=== PATIENT | female | born 1960 | race Caucasian/White ===

== ENCOUNTER 2022-07-06 21:02 | Emergency (ER) | payer OTHER ==
--- OUTSIDE RECORDS SUMMARY | 2022-07-06 21:06 | XMS REPORT | Continuity of Care Document ---
:1960 Author Organization [facility] t Address 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 Attending Clinician Unavailable GC_PANTHER_Still_D Attending Clinician Unavailable GC_TBIC_WP_Mammo Attending Clinician Unavailable Khai Sharif Attending Clinician [phone] Amanda Day Attending Clinician [phone] Jamin Plascencia Attending Clinician Fernando Caputo Attending Clinician Damaso Etienne Attending Clinician GC_PANTHER_Patel_G Admitting Clinician Unavailable GC_PANTHER_Still_D Admitting Clinician Unavailable GC_[email or web address]_Mammo Admitting Clinician Unavailable Damaso Etienne Admitting Clinician Payers Payer Name Policy Type Policy Number Effective Date Expiration Date [facility] [id number] Problems Condition Condition Condition Status Onset Resolution Last Treating Co mments Source Name Details Category Date Date Treatment Clinician Date Seasonal Seasonal Problem Active [facility] a allergic Allergic 09-13 Medica l rhinitis Rhinitis 00:00: 00 Vaginal Vaginal Problem Active [facility] dryness Dryness - Medical 00:00: 00 Bilateral Bilateral Problem Active Diane via temporoman Temporoman 08-08 Me dical dibular dibular 00:00: joint Joint 00 disorder Disorder WEAKNESS WEAKNESS Diagnosis Active 2018-052019-03-12 Memoria Active 0 11:00:00 l 03/07/2019 07:00: Rambo allred Lauryn 00 Rehab M25.511 M25.511 Diagnosis Active 2019-02-03 Memoria Active 01-21 15:06:00 l 01/21/2019 00:00: Rambo allred Lauryn 00 Rehab MORBID MORBID Diagnosis Active 2018-02-24 M emoria OBESITY OBESITY 01-08 12:18:00 l Active 00:00: Justus 01/08/2018 00 [facility] Herpes Herpes Problem Active [facility] simplex Simplex 12-15 Medical 00:00: 00 Hyperlipid Hyperlipid Problem Active P rivia emia emia 12-15 Medical 00:00: 00 Depressive Depressive Problem Active P rivia disorder Disorder 12-15 Medica l 00:00: 00 Attention Attention Problem Active Diane via deficit Deficit 12-15 Medical hyperactiv Hyperactiv 00:00: ity ity 00 disorder Disorder Hypertensi Hypertensi Problem Active P rivia ve ve 12-15 Medical disorder Disorder 00:00: 00 Acid Acid Problem Active [facility] reflux Reflux 12-15 Medical 00:00: 00 Irritable Irritable Problem Active Diane via bowel Bowel 12-15 Medical syndrome Syndrome 00:00: 00 Osteoarthr Osteoarthr Problem Active P rivia itis itis 12-15 Medical 00:00: 00 Multiple Multiple Problem Active [facility] Me dical velia velia 00:00: allergies Allergies 00 Preop Preop Disease Active [facility] cardiovasc cardiovasc 4-13 st ular exam ular exam 00:00: Hosp inocente 00 l Mixed Mixed Disease Active [facility] hyperlipid hyperlipid 4-13 st emia emia 00:00: Hospita 00 l Essential Essential Disease Active Met hodi hypertensi hypertensi 4-13 st on on 00:00: Hospita 00 l Morbid Morbid Disease Active [facility] obesity obesity 12-20 st due to due to 00:00: Hospita excess excess 00 l calories calories Depression Depression Disease Active M ethodi 7-29 st 00:00: Hospita 00 l GERD GERD Disease Active [facility] (gastroeso (gastroeso 12-20 phageal phageal 00:00: Hospita reflux reflux 00 l disease) disease) Osteoarthr Osteoarthr Disease Active M ethodi itis itis 12-20 00:00: Hospita 00 l Sciatica Sciatica Disease Active Metho di 11-29 00:00: Hospita 00 l Asthma Asthma Problem Active [facility] Medical Thyroid Thyroid Problem Active [facility] function Function Medica l tests Tests abnormal Abnormal Hyperlipid Hyperlipi Problem 2018-09-13 Memoria emia, demia, 11:24:37 l unspecifie unspecifie He rmann d d 09/13/2018 [facility] Essential Essential Problem 2018-09-13 Memoria (primary) (primary) 11:24:37 l hypertensi hypertensi He rmann on on 09/13/2018 [facility] Gastro-eso Gastro-es Problem 2018-09-13 Memoria phageal ophageal 11:24:37 l reflux reflux [place] disease disease without without esophagiti esophagiti s s 09/13/2018 [facility] Diaphragma Problem 2018-09-13 M emoria tic hernia Diaphragma 11:24:37 l without tic hernia Thalia nn obstructio without n or obstructio gangrene n or gangrene 09/13/2018 [facility] Body mass Body mass Problem 2018-09-13 Memoria index index 11:24:37 l (BMI) (BMI) [place] 45.0-49.9, 45.0-49.9, adult adult 09/13/2018 [facility] Mixed Mixed Problem Active 2019-04-08 Memor ia anxiety anxiety 00:29:56 l and and Justus depressive depressive disorder disorder (disorder) (disorder) Active Problem 04/08/2019 АННА Perez, ANGELA [place], [facility] History of History Problem Active 2019-04-08 Memoria - obesity of - 00:29:56 l (context-d obesity Thalia nn ependent (context-d category) ependent category) Active Problem 04/08/2019 АННА Perez, ANGELA [place], [facility] Obstructiv Obstructi Problem Active 2019-04-08 Memoria e sleep ve sleep 00:29:56 l apnea apnea [place] syndrome syndrome (disorder) (disorder) Active Problem 04/08/2019 [facility], ANGELA [place], [facility] PAIN IN PAIN IN Diagnosis Active 2019-02-03 Memoria RIGHT RIGHT 15:06:00 l SHOULDER SHOULDER Rambo n Active Lauryn Rehab MORBID MORBID Diagnosis Active 2018-02-24 Me moria (SEVERE) (SEVERE) 12:18:00 l OBESITY OBESITY [place] DUE TO DUE TO EXCESS CA EXCESS CA Active [facility] History of Past Illness Condition Condition Condition Status Onset Resolution Last Treating Co mments Source Name Details Category Date Date Treatment Clinician Date Encounter Encounter Problem 2017-052018-10-12 2018-10-12 Memoria for for 06-01 13:06:33 13:06:33 l screening screening 06:03: Herm edouard mammogram mammogram 50 for for malignant malignant neoplasm neoplasm of breast of breast 04/01/2018 9 ANGELA Cannelton Morbid Morbid Problem 2017-052018-09-13 2018-09-13 Memoria (severe) (severe) 0-11 11:24:37 11:24:37 l obesity obesity 04:17: [place] due to due to 40 excess excess calories calories 03/04/2018 09/13/2018 [facility] Allergies, Adverse Reactions, Alerts Allergy Allergy Status Severity Reaction(s) Onset Inactive Treating Comm ents Source Name Type Date Date Clinician Codejaneth Lai Active Other (See "Makes me Methodi ty to Comments) 10-23 tense" st adverse 00:00: Hospita reaction 00 l s to drug Morphine Propensi Active Itching Metho di ty to 12-15 st adverse 00:00: Hospita reaction 00 l s to drug morphine morphine Active Memori a l Justus Lisinopr Allergy Active Mild Cough [facility] il to Medical substanc e Family History Family Member Diagnosis Comments Start Date Stop Date Source Paternal Heart disease [facility] Paternal Cancer [facility] Paternal Colon cancer [facility] Paternal uncle Diabetes [facility] Natural father Heart disease [facility] Natural father Hypertension [facility] Maternal Heart disease [facility] Maternal Pancreatic cancer [facility] Natural mother Anesthesia problems [facility] Natural mother Arthritis [facility] Social History Social Habit Start Date Stop Date Quantity Comments Source History of Tobacco [facility] Use [facility] ent Clinics Alcohol intake 2017-10-24 2017-10-24 Current [facility] 00:00:00 00:00:00 non-drinker of Hospital alcohol (finding) Cigarettes smoked 2017-08-04 2017-08-[address] current (pack per 00:00:00 00:00:00 Hospita l day) - Reported Cigarette 2017-08-04 2017-08-04 [facility] pack-years 00:00:00 00:00:00 Hospital Tobacco use and 2017-08-04 2017-08-04 Smokeless [facility] exposure 00:00:00 00:00:00 tobacco non-user Hospital Sex Assigned At [birth year] [facility] 00:[facility] 00[facility]:00 Hospital Smoking Status Start Date Stop Date Source Social History 2018-02-22 13:01:58 2018-02-22 13:01:58 [facility] Medications Ordered Filled Start Stop Current Ordering Indication Dosage Frequency Signature Comments Components Source Medication Medication Date Date Medication? Clinician (SIG) Name Name diclofenac 2017-05 Yes 2g Q.25D Apply 2 g M ethodi (VOLTAREN) 0-[address] 1 % gel 08:02: 4 (four) Hospit a 17 times a l day. VITAMIN B 2017-05 Yes Take by Metho di COMPLEX (B 0-[address] COMPLEX 1 08:02: Hospita ORAL) 17 l ubidecareno 2017-05 Yes Take by Met saqib ken (CO Q-10 0-[address] ORAL) 08:02: Hospita 17 l Phenergan 2017-05 Yes 25 mg = 1 Mem oria 25 mg oral 0-03 tab, PO, l tablet 14:27: Q6H, PRN Justus 00 Nausea, # 20 tab, 1 Refill(s), given to patient Famotidine 2017-05 Yes 20 mg = 1 Me moria 20 MG Oral 0-03 tab, PO, l Tablet 14:27: BID, # 180 Thalia nn [Pepcid] 00 tab, 0 Refill(s), given to patient Acetaminoph 2017-05 No 15 ml, PO, Memoria en 21.7 0-03 Q4H, PRN l MG/ML / 14:27: Pain, X 7 Thalia nn Hydrocodone 00 day, # 400 Bitartrate mL, 0 0.5 MG/ML Refill(s), Oral given to Solution patient Lovenox 2017-05 No Notes: Memoria 0-03 (Same as: l 12:00: Lovenox) Famotidine 2017-05 No Notes: Memor ia 0-03 (Same as: l 02:00: Pepcid) Can be dilute in 5-10cc NS IVP: Slow IV push over at least 2 minutes. glycopyrrol 2017-05 No Route: IV, Memoria ate (ANES) 0-02 Drug form: l 15:59: INJ, ONCE, Stop date: 02/23/18 10:59:00 CDT dexamethaso 2017-05 No Route: IV, Memoria ne (ANES) 0-02 Drug form: l 15:59: INJ, ONCE, Stop date: 02/23/18 10:59:00 CDT neostigmine 2017-05 No Route: IV, Memoria (ANES) 0-02 Drug form: l 15:59: INJ, ONCE, Stop date: 02/23/18 10:59:00 CDT cefOXitin 2017-05 No Route: IV, Me moria (ANES) 0-02 Drug form: l 15:52: INJ, ONCE, Stop date: 02/23/18 10:52:00 CDT ondansetron 2017-05 No Route: IV, Memoria (ANES) 0-02 Drug form: l 15:47: INJ, ONCE, Stop date: 02/23/18 10:47:00 CDT hydromorpho 2017-05 No Route: IV, Memoria ne (ANES) 0-02 Drug form: l 15:47: INJ, ONCE, Stop date: 02/23/18 10:47:00 CDT Flumazenil 2017-05 No Notes: Memor ia 0-02 (Same as: l 15:36: Romazicon) Naloxone 2017-05 No Notes: Memoria 0-02 Same as l 15:36: Narcan Atropine 2017-05 No Notes: Mem oria 0-02 MEDICATION l 15:36: WASTE [place] 00 Product Size: 0.4 mg Product Wasted: ___ mg Ephedrine 2017-05 No Notes: Memori a 0-02 final l 15:36: concentrat [place] 00 ion 5 mg/mL Diphenhydra 2017-05 No Notes: Kaleb papito mine 0-02 (Same as: l 15:36: Benadryl) Albuterol 2017-05 No Notes: SEE Me moria 0.83 MG/ML 0-02 RT l Inhalant 15:36: DOCUMENTAT Her joseph Solution 00 ION (Same as: Proventil) Glycopyrrol 2017-05 No Notes: Kaleb papito ate 0-02 (Same as: l 15:36: Robinul) Dexamethaso 2017-05 No Notes: Kaleb papito ne 0-02 Concentrat l 15:36: ion: Justus 00 4mg/ml Ondansetron 2017-05 No Notes: Kaleb papito 0-02 (Same as: l 15:36: Zofran) MEDICATION WASTE Product Size: 4 mg Product Wasted: ___ mg Hydromorpho 2017-05 No Notes: Kaleb papito ne 0-02 Same as: l 15:36: Dilaudid Oxycodone 2017-05 No Notes: Memori a 0-02 (Same as: l 15:36: Roxicodone ) Fentanyl 2017-05 No Notes: Memoria 0-02 (Same as: l 15:36: Sublimaze) Preservati ve free. Hydralazine 2017-05 No Notes: Kaleb papito 0-02 (Same as: l 15:36: Apresoline ) Push over 5 minutes Labetalol 2017-05 No 10 mg, 2 Kaleb papito 0-02 mL, Route: l 15:36: IVP, Drug form: INJ, Q5Min, Dosing Weight 110, kg, PRN Elevated BP, Start date: 02/23/18 10:36:00 CDT, Duration: 5 doses or times, Stop date: Limited # of times Metoprolol 2017-05 No Notes: Memor ia 0-02 (Same as: l 15:36: Lopressor) Justus 00 Push over 2 minutes Calcium 2017-05 No 1,000 mL, Memor ia Chloride 0-02 Rate: 125 l 0.0014 15:36: ml/hr, Justus MEQ/ML / 00 Infuse Potassium over: 8 Chloride hr, Route: 0.004 IV, Dosing MEQ/ML / Weight 110 Sodium kg, Total Chloride Volume: 0.103 1,000, MEQ/ML / Start Sodium date: Lactate 02/23/18 0.028 10:36:00 MEQ/ML CDT, Injectable Duration: Solution 30 day, Stop date: 03/25/18 10:35:00 CDT, 2.24, m2 enalapril 2017-05 No Notes: Memori a 0-02 (Same as: l 15:28: Vasotec-IV Justus ) Dilaudid 2017-05 No Notes: Memoria 0-02 Same as: l 15:28: Dilaudid Justus 00 Benadryl 2017-05 No Notes: Memoria 0-02 (Same as: l 15:28: Benadryl) [place] 00 Sodium 2017-05 No 984.8 mL, Memori a Chloride 0-02 Rate: 100 l 0.9% IV 15:28: ml/hr, [place] 984.8 mL + 00 Infuse M.V.I.-12 over: 10 10 mL Daily hr, Route: + folic IV, Dosing acid IV 1 Weight 110 mg Daily + kg, Total thiamine IV Volume: 5 1,000, Start date: 02/23/18 10:28:00 CDT, Duration: 1 doses or times, Stop date: 02/23/18 20:27:00 CDT, 2.24, m2 Acetaminoph 2017-05 No Notes: Do M emoria en 21.7 0-02 not exceed l MG/ML / 15:28: 4gm/day of Herm edouard Hydrocodone 00 acetaminop Bitartrate hen. (Same 0.5 MG/ML as: [place] Oral 325/7.5) Solution Zofran 2017-05 No Notes: Memoria 0-02 (Same as: l 15:28: Zofran) Justus 00 MEDICATION WASTE Product Size: 4 mg Product Wasted: ___ mg Phenergan 2017-05 No Notes: Do Mem oria 0-02 not give l 15:28: IV push. (Same as: Phenergan) normal 2017-05 No 1,000 mL, Memori a saline 0.9% 0- Rate: 125 l IV 1,000 mL 15:28: ml/hr, Herm Infuse over: 8 hr, Route: IV, Dosing Weight 110 kg, Total Volume: 1,000, Start date: 02/23/18 10:28:00 CDT, Duration: 30 day, Stop date: 03/25/18 10:27:00 CDT, 2.24, m2 rocuronium 2017-05 No Route: IV, M emoria (ANES) 0-02 Drug form: l 15:12: INJ, ONCE, Stop date: 02/23/18 10:12:00 CDT ePHEDrine 2017-05 No Route: IV, Me moria (ANES) 0-02 Drug form: l 15:12: INJ, ONCE, Stop date: 02/23/18 10:12:00 CDT phenylephri 2017-05 No Route: IV, Memoria ne (ANES) 0-02 Drug form: l 15:12: INJ, ONCE, Stop date: 02/23/18 10:12:00 CDT fentaNYL 2017-05 No Route: IV, Mem oria (ANES) 0-02 Drug form: l 15:12: INJ, ONCE, Stop date: 02/23/18 10:12:00 CDT propofol 2017-05 No Route: IV, Mem oria (ANES) 0-02 Drug form: l 15:12: INJ, ONCE, Stop date: 02/23/18 10:12:00 CDT midazolam 2017-05 No Route: IV, Me moria (ANES) 0-02 Drug form: l 14:57: SOLN, ONCE, Stop date: 02/23/18 9:57:00 CDT famotidine 2017-05 No Route: IV, M emoria (ANES) 0-02 Drug form: l 14:57: INJ, ONCE, Stop date: 02/23/18 9:57:00 CDT magnesium 2017-05 No Route: IV, Me moria sulfate 0-02 Drug form: l (ANES) 40 14:20: INJ, Start He rmann mg 00 date: 02/23/18 9:20:00 CDT, Stop date: 02/23/18 10:20:00 CDT Lactated 2017-05 No Route: IV, Mem oria Ringers 0-02 Total l Injection 14:16: Volume: Thalia nn IV (ANES) 00 1,000, 1000 mL Start date: 02/23/18 9:16:00 CDT, Stop date: 02/23/18 10:16:00 CDT magnesium 2017-05 No Notes: Memori a sulfate 2gm 0-02 WASTE: F/P l / NS 50ml 14:00: - Sink; E Her joseph (premixed) - Municipal Trash Bin 72 HR 2017-05 No 1.5 mg = 1 Memori a Scopolamine 0-02 patch, l 0.0139 13:51: TOP, Q72H, Thalia nn MG/HR 00 PRN Transdermal Other-See Patch Comments, # 4 ea, 0 Refill(s) aprepitant 2017-05 No 40 mg = 1 Me moria 40 mg oral 0-02 cap, PO, l capsule 13:51: ONCE, # 1 Thalia nn 00 cap, 0 Refill(s) Lactated 2017-05 No 1,000 mL, Kaleb papito Ringers IV 0-02 Rate: 40 l 1,000 mL 13:46: ml/hr, Justus 00 Infuse over: 25 hr, Route: IV, Dosing Weight 110 kg, Total Volume: 1,000, Start date: 02/23/18 8:46:00 CDT, Duration: 30 day, Stop date: 03/25/18 8:45:00 CDT, 2.24, m2 Magnesium 2017-05 No Notes: Memori a Sulfate 0-02 WASTE: F/P l 01:00: - Sink; E [place] 00 - Municipal Trash Bin Zofran ODT 2017-05 No Notes: Memor ia 0-02 (Same as: l 00:29: Zofran Justus 00 ODT) heparin 2017-05 No Notes: Memoria 0-01 porcine l 16:00: heparin Justus 00 Mefoxin + 2017-05 No Notes: Memori a sterile 0-01 (Same As: l water 20 mL 16:00: Mefoxin) rmann 00 MEDICATION WASTE Product Size: 2000 mg Product Wasted: ___ mg Tylenol 2017-05 No PO, PRN, 0 Kaleb papito 0-01 Refill(s) l 13:08: [place] 00 Ibuprofen 2017-05 No 400 mg = 2 Me moria 200 MG Oral 0-01 tab, PO, l Tablet 13:07: PRN, PRN [place] [Advil] 00 Pain, # 120 tab, 0 Refill(s) Ventolin 2017-05 Yes 2 puff, Memori a HFA 90 0-01 INHALER, l mcg/inh 13:06: Q4H, PRN Rambo n inhalation 00 wheezing, aerosol coughing, with or adapter shortness of breath, # 8 gm, 1 Refill(s) 120 ACTUAT 2017-05 Yes INHALATION M emoria mometasone 0-01 , BID, 0 l furoate 0.1 13:05: Refill(s) H ermann MG/ACTUAT 00 Metered Dose Inhaler [Asmanex] Fluticasone 2017-05 Yes 2 spray, Me moria propionate 0-01 NASAL, l 0.05 13:04: Daily, in [place] MG/ACTUAT 00 each Metered nostril, # Dose Nasal 16 gm, 1 [place] Refill(s) olmesartan 2017-05 Yes 40 mg = 1 Me moria 40 mg oral 0-01 tab, PO, l tablet 13:04: Daily, # Justus 00 30 tab, 0 Refill(s) Hydrochloro 2017-05 No 50 mg, PO, Memoria thiazide 0-01 Daily, 0 l 13:04: Refill(s) Justus 00 BENICAR HCT Yes 1{tbl} QD Take 1 Me thodi 40-25 mg 4-[address] per tablet 00:00: mouth Hospit a 00 daily. l ergocalcife 2016-05 Yes TK ONE C Me thodi rol 2-[address] (VITAMIN 00:00: THURSDAY AND Hos cecelia D2) 50,000 00 THURS l unit capsule EVAMIST 2016-05 Yes JEANA 1 Methodi 1.53 2-[address] mg/spray 00:00: UTD Hospita (1.7%) 00 l transdermal spray VENTOLIN Yes INHALE 2 Metho di HFA 90 9-[address] mcg/actuati 00:00: 4 TO 6 H Ho spita on inhaler 00 PRN FOR l SHORTNESS OF BREATH progesteron Yes 100mg QD Take 100 M ethodi e 6-[address] (PROMETRIUM 00:00: mouth Hospi ta ) 100 MG 00 nightly. l capsule montelukast Yes 10mg QD Take 10 mg Methodi (SINGULAIR) 5-[address] 10 mg 00:00: nightly. Hospita tablet 00 l Asmanex HFA Asmanex HFA No Asmanex [facility] 100 100 HFA 100 Medical mcg/actuati mcg/actuati mcg/actuat on aerosol on aerosol ion inhaler inhaler aerosol INHALE 2 INHALE 2 inhaler PUFFS BY PUFFS BY INHALE 2 MOUTH TWICE MOUTH TWICE PUFFS BY DAILY DAILY MOUTH TWICE DAILY Bepreve 1.5 Bepreve 1.5 No Bepreve [facility] % eye drops % eye drops 1.5 % eye Medical INSTILL 1 INSTILL 1 drops DROP INTO DROP INTO INSTILL 1 BOTH EYES BOTH EYES DROP INTO BID BID BOTH EYES BID cyclobenzap cyclobenzap No cyclobenza [facility] rine 10 mg rine 10 mg andrew 10 Medical tablet TAKE tablet TAKE mg tablet 1/2 TO 1 1/2 TO 1 TAKE 1/2 TABLET BY TABLET BY TO 1 MOUTH EVERY MOUTH EVERY TABLET BY NIGHT AT NIGHT AT MOUTH BEDTIME BEDTIME EVERY NEEDED NEEDED NIGHT AT BEDTIME NEEDED doxycycline doxycycline No doxycyclin [facility] hyclate 100 hyclate 100 e hyclate Medical mg capsule mg capsule 100 mg TAKE 1 TAKE 1 capsule CAPSULE BY CAPSULE BY TAKE 1 MOUTH TWICE MOUTH TWICE CAPSULE BY DAILY DAILY MOUTH TWICE DAILY estradiol estradiol No estradiol [facility] 10 mcg 10 mcg 10 mcg Medical vaginal vaginal vaginal tablet 1 tablet 1 tablet 1 tab nightly tab nightly tab x 2 weeks, x 2 weeks, nightly x then twice then twice 2 weeks, weekly weekly then twice weekly Evamist Evamist No Evamist [facility] 1.53 1.53 1.53 Medical mg/spray mg/spray mg/spray (1.7 %) (1.7 %) (1.7 %) transdermal transdermal transderma spray JEANA 1 spray JEANA 1 l spray SPR TO SPR TO JEANA 1 SPR INNER INNER TO INNER SURFACE OF SURFACE OF SURFACE OF FOREARM D FOREARM D FOREARM D fluticasone fluticasone No fluticason [facility] propionate propionate e Med ical 50 50 propionate mcg/actuati mcg/actuati 50 on nasal on nasal mcg/actuat spray,suspe spray,suspe ion nasal nsion SHAKE nsion SHAKE spray,susp LQ AND U 2 LQ AND U 2 ension SPRAYS IEN SPRAYS IEN SHAKE LQ QD QD AND U 2 SPRAYS IEN QD methylpredn methylpredn No methylpred [facility] isolone 4 isolone 4 nisolone 4 Medical mg tablets mg tablets mg tablets in a dose in a dose in a dose pack FOLLOW pack FOLLOW pack PACKAGE PACKAGE FOLLOW DIRECTIONS DIRECTIONS PACKAGE DIRECTIONS montelukast montelukast No montelukas [facility] 10 mg 10 mg t 10 mg Medical tablet TAKE tablet TAKE tablet 1 TABLET BY 1 TABLET BY TAKE 1 MOUTH AT MOUTH AT TABLET BY BEDTIME FOR BEDTIME FOR MOUTH AT ASTHMA OR ASTHMA OR BEDTIME ALLERGIES ALLERGIES FOR ASTHMA OR ALLERGIES olmesartan olmesartan No olmesartan [facility] 20 mg 20 mg 20 mg Medical tablet TAKE tablet TAKE tablet 1 TABLET BY 1 TABLET BY TAKE 1 MOUTH EVERY MOUTH EVERY TABLET BY DAY DAY MOUTH EVERY DAY oxybutynin oxybutynin No oxybutynin [facility] chloride ER chloride ER chloride Medical 10 mg 10 mg ER 10 mg tablet,exte tablet,exte tablet,ext nded nded ended release 24 release 24 release 24 hr 10 mg ER hr 10 mg ER hr 10 mg PO daily, PO daily, ER PO may incr. may incr. daily, may by 1 tablet by 1 tablet incr. by 1 every week; every week; tablet Max: 30 mg Max: 30 mg every week; Max: 30 mg Pepcid 20 Pepcid 20 No 1 Q1D Pepcid 20 [facility] mg tablet mg tablet mg tablet Medical Take 1 Take 1 Take 1 tablet tablet tablet every day every day every day by oral by oral by oral route. route. route. Proventil Proventil No Proventil [facility] HFA 90 HFA 90 HFA 90 Medical mcg/actuati mcg/actuati mcg/actuat on aerosol on aerosol ion inhaler inhaler aerosol INHALE 2 INHALE 2 inhaler PUFFS BY PUFFS BY INHALE 2 MOUTH EVERY MOUTH EVERY PUFFS BY 4 TO 6 4 TO 6 MOUTH HOURS HOURS EVERY 4 TO NEEDED FOR NEEDED FOR 6 HOURS WHEEZING OR WHEEZING OR NEEDED FOR SHORTNESS SHORTNESS WHEEZING OF BREATH OF BREATH OR SHORTNESS OF BREATH Voltaren 1 Voltaren 1 No Voltaren 1 [facility] % topical % topical % topical Medical gel JEANA 2 gel JEANA 2 gel JEANA 2 GRAMS EXT GRAMS EXT GRAMS EXT AA QID P OR AA QID P OR AA QID P INFLAMMATIO INFLAMMATIO OR N N INFLAMMATI ON Xiidra 5 % Xiidra 5 % No Xiidra 5 % [facility] eye drops eye drops eye drops Medical in a in a in a dropperette dropperette dropperett INSTILL 1 INSTILL 1 e INSTILL DROP BOTH DROP BOTH 1 DROP EYES TWICE EYES TWICE BOTH EYES DAILY DAILY TWICE DAILY Asmanex HFA Asmanex HFA No Asmanex [facility] 100 100 HFA 100 Medical mcg/actuati mcg/actuati mcg/actuat on aerosol on aerosol ion inhaler inhaler aerosol INHALE 2 INHALE 2 inhaler PUFFS BY PUFFS BY INHALE 2 MOUTH TWICE MOUTH TWICE PUFFS BY DAILY DAILY MOUTH TWICE DAILY Bepreve 1.5 Bepreve 1.5 No Bepreve [facility] % eye drops % eye drops 1.5 % eye Medical INSTILL 1 INSTILL 1 drops DROP INTO DROP INTO INSTILL 1 BOTH EYES BOTH EYES DROP INTO BID BID BOTH EYES BID cyclobenzap cyclobenzap No cyclobenza [facility] rine 10 mg rine 10 mg andrew 10 Medical tablet TAKE tablet TAKE mg tablet 1/2 TO 1 1/2 TO 1 TAKE 1/2 TABLET BY TABLET BY TO 1 MOUTH EVERY MOUTH EVERY TABLET BY NIGHT AT NIGHT AT MOUTH BEDTIME BEDTIME EVERY NEEDED NEEDED NIGHT AT BEDTIME NEEDED doxycycline doxycycline No 1capsul BID doxycyclin [facility] hyclate 100 hyclate 100 e(s) e hyclate Medical mg capsule mg capsule 100 mg Take 1 Take 1 capsule capsule capsule Take 1 twice a day twice a day capsule by oral by oral twice a route. route. day by oral route. estradiol estradiol No estradiol [facility] 10 mcg 10 mcg 10 mcg Medical vaginal vaginal vaginal tablet 1 tablet 1 tablet 1 tab nightly tab nightly tab x 2 weeks, x 2 weeks, nightly x then twice then twice 2 weeks, weekly weekly then twice weekly Evamist Evamist No Evamist [facility] 1.53 1.53 1.53 Medical mg/spray mg/spray mg/spray (1.7 %) (1.7 %) (1.7 %) transdermal transdermal transderma spray JEANA 1 spray JEANA 1 l spray SPR TO SPR TO JEANA 1 SPR INNER INNER TO INNER SURFACE OF SURFACE OF SURFACE OF FOREARM D FOREARM D FOREARM D fluticasone fluticasone No fluticason [facility] propionate propionate e Med ical 50 50 propionate mcg/actuati mcg/actuati 50 on nasal on nasal mcg/actuat spray,suspe spray,suspe ion nasal nsion SHAKE nsion SHAKE spray,susp LQ AND U 2 LQ AND U 2 ension SPRAYS IEN SPRAYS IEN SHAKE LQ QD QD AND U 2 SPRAYS IEN QD Medrol Medrol No Medrol [facility] (Ottoniel) 4 mg (Ottoniel) 4 mg (Ottoniel) 4 mg Medical tablets in tablets in tablets in a dose pack a dose pack a dose Take as Take as pack Take directed directed as directed montelukast montelukast No montelukas [facility] 10 mg 10 mg t 10 mg Medical tablet TAKE tablet TAKE tablet 1 TABLET BY 1 TABLET BY TAKE 1 MOUTH AT MOUTH AT TABLET BY BEDTIME FOR BEDTIME FOR MOUTH AT ASTHMA OR ASTHMA OR BEDTIME ALLERGIES ALLERGIES FOR ASTHMA OR ALLERGIES olmesartan olmesartan No olmesartan [facility] 20 mg 20 mg 20 mg Medical tablet TAKE tablet TAKE tablet 1 TABLET BY 1 TABLET BY TAKE 1 MOUTH EVERY MOUTH EVERY TABLET BY DAY DAY MOUTH EVERY DAY Pepcid 20 Pepcid 20 No 1 Q1D Pepcid 20 [facility] mg tablet mg tablet mg tablet Medical Take 1 Take 1 Take 1 tablet tablet tablet every day every day every day by oral by oral by oral route. route. route. Proventil Proventil No Proventil [facility] HFA 90 HFA 90 HFA 90 Medical mcg/actuati mcg/actuati mcg/actuat on aerosol on aerosol ion inhaler inhaler aerosol INHALE 2 INHALE 2 inhaler PUFFS BY PUFFS BY INHALE 2 MOUTH EVERY MOUTH EVERY PUFFS BY 4 TO 6 4 TO 6 MOUTH HOURS HOURS EVERY 4 TO NEEDED FOR NEEDED FOR 6 HOURS WHEEZING OR WHEEZING OR NEEDED FOR SHORTNESS SHORTNESS WHEEZING OF BREATH OF BREATH OR SHORTNESS OF BREATH Voltaren 1 Voltaren 1 No Voltaren 1 [facility] % topical % topical % topical Medical gel JEANA 2 gel JEANA 2 gel JEANA 2 GRAMS EXT GRAMS EXT GRAMS EXT AA QID P OR AA QID P OR AA QID P INFLAMMATIO INFLAMMATIO OR N N INFLAMMATI ON Xiidra 5 % Xiidra 5 % No Xiidra 5 % [facility] eye drops eye drops eye drops Medical in a in a in a dropperette dropperette dropperett INSTILL 1 INSTILL 1 e INSTILL DROP BOTH DROP BOTH 1 DROP EYES TWICE EYES TWICE BOTH EYES DAILY DAILY TWICE DAILY Asmanex HFA Asmanex HFA No Asmanex [facility] 100 100 HFA 100 Medical mcg/actuati mcg/actuati mcg/actuat on aerosol on aerosol ion inhaler inhaler aerosol INHALE 2 INHALE 2 inhaler PUFFS BY PUFFS BY INHALE 2 MOUTH TWICE MOUTH TWICE PUFFS BY DAILY DAILY MOUTH TWICE DAILY Bepreve 1.5 Bepreve 1.5 No Bepreve [facility] % eye drops % eye drops 1.5 % eye Medical INSTILL 1 INSTILL 1 drops DROP INTO DROP INTO INSTILL 1 BOTH EYES BOTH EYES DROP INTO BID BID BOTH EYES BID cyclobenzap cyclobenzap No cyclobenza [facility] rine 10 mg rine 10 mg andrew 10 Medical tablet TAKE tablet TAKE mg tablet 1/2 TO 1 1/2 TO 1 TAKE 1/2 TABLET BY TABLET BY TO 1 MOUTH EVERY MOUTH EVERY TABLET BY NIGHT AT NIGHT AT MOUTH BEDTIME BEDTIME EVERY NEEDED NEEDED NIGHT AT BEDTIME NEEDED doxycycline doxycycline No 1capsul BID doxycyclin [facility] hyclate 100 hyclate 100 e(s) e hyclate Medical mg capsule mg capsule 100 mg Take 1 Take 1 capsule capsule capsule Take 1 twice a day twice a day capsule by oral by oral twice a route. route. day by oral route. estradiol estradiol No estradiol [facility] 10 mcg 10 mcg 10 mcg Medical vaginal vaginal vaginal tablet 1 tablet 1 tablet 1 tab nightly tab nightly tab x 2 weeks, x 2 weeks, nightly x then twice then twice 2 weeks, weekly weekly then twice weekly Evamist Evamist No Evamist [facility] 1.53 1.53 1.53 Medical mg/spray mg/spray mg/spray (1.7 %) (1.7 %) (1.7 %) transdermal transdermal transderma spray JEANA 1 spray JEANA 1 l spray SPR TO SPR TO JEANA 1 SPR INNER INNER TO INNER SURFACE OF SURFACE OF SURFACE OF FOREARM D FOREARM D FOREARM D fluticasone fluticasone No fluticason [facility] propionate propionate e Med ical 50 50 propionate mcg/actuati mcg/actuati 50 on nasal on nasal mcg/actuat spray,suspe spray,suspe ion nasal nsion SHAKE nsion SHAKE spray,susp LQ AND U 2 LQ AND U 2 ension SPRAYS IEN SPRAYS IEN SHAKE LQ QD QD AND U 2 SPRAYS IEN QD Medrol Medrol No Medrol [facility] (Ottoniel) 4 mg (Ottoniel) 4 mg (Ottoniel) 4 mg Medical tablets in tablets in tablets in a dose pack a dose pack a dose Take as Take as pack Take directed directed as directed montelukast montelukast No montelukas [facility] 10 mg 10 mg t 10 mg Medical tablet TAKE tablet TAKE tablet 1 TABLET BY 1 TABLET BY TAKE 1 MOUTH AT MOUTH AT TABLET BY BEDTIME FOR BEDTIME FOR MOUTH AT ASTHMA OR ASTHMA OR BEDTIME ALLERGIES ALLERGIES FOR ASTHMA OR ALLERGIES olmesartan olmesartan No olmesartan [facility] 20 mg 20 mg 20 mg Medical tablet TAKE tablet TAKE tablet 1 TABLET BY 1 TABLET BY TAKE 1 MOUTH EVERY MOUTH EVERY TABLET BY DAY DAY MOUTH EVERY DAY Pepcid 20 Pepcid 20 No 1 Q1D Pepcid 20 [facility] mg tablet mg tablet mg tablet Medical Take 1 Take 1 Take 1 tablet tablet tablet every day every day every day by oral by oral by oral route. route. route. Proventil Proventil No Proventil [facility] HFA 90 HFA 90 HFA 90 Medical mcg/actuati mcg/actuati mcg/actuat on aerosol on aerosol ion inhaler inhaler aerosol INHALE 2 INHALE 2 inhaler PUFFS BY PUFFS BY INHALE 2 MOUTH EVERY MOUTH EVERY PUFFS BY 4 TO 6 4 TO 6 MOUTH HOURS HOURS EVERY 4 TO NEEDED FOR NEEDED FOR 6 HOURS WHEEZING OR WHEEZING OR NEEDED FOR SHORTNESS SHORTNESS WHEEZING OF BREATH OF BREATH OR SHORTNESS OF BREATH Voltaren 1 Voltaren 1 No Voltaren 1 [facility] % topical % topical % topical Medical gel JEANA 2 gel JEANA 2 gel JEANA 2 GRAMS EXT GRAMS EXT GRAMS EXT AA QID P OR AA QID P OR AA QID P INFLAMMATIO INFLAMMATIO OR N N INFLAMMATI ON Xiidra 5 % Xiidra 5 % No Xiidra 5 % [facility] eye drops eye drops eye drops Medical in a in a in a dropperette dropperette dropperett INSTILL 1 INSTILL 1 e INSTILL DROP BOTH DROP BOTH 1 DROP EYES TWICE EYES TWICE BOTH EYES DAILY DAILY TWICE DAILY Immunizations Ordered Immunization Filled Immunization Date Status Commen ts Source Name Name COVID-19 vaccine, COVID-19 vaccine, 2020-07-26 Completed [facility] Medical vector-nr, rS-Ad26, vector-nr, rS-Ad26, 00:00:00 PF, 0.5 mL PF, 0.5 mL COVID-19 vaccine, COVID-19 vaccine, 2020-07-26 Completed [facility] Medical vector-nr, rS-Ad26, vector-nr, rS-Ad26, 00:00:00 PF, 0.5 mL PF, 0.5 mL COVID-19 vaccine, COVID-19 vaccine, 2020-07-26 Completed [facility] Medical vector-nr, rS-Ad26, vector-nr, rS-Ad26, 00:00:00 PF, 0.5 mL PF, 0.5 mL influenza, influenza, 2019-05-04 Completed [facility] injectable, injectable, 12:17:02 quadrivalent quadrivalent influenza, influenza, 2019-05-04 Completed [facility] injectable, injectable, 12:17:02 quadrivalent quadrivalent influenza, influenza, 2019-05-04 Completed [facility] injectable, injectable, 12:17:02 quadrivalent quadrivalent influenza, influenza, 2018-01-27 Com[facility], injectable, 10:13:00 quadrivalent quadrivalent influenza, influenza, 2018-01-27 Completed [facility] injectable, injectable, 10:13:00 quadrivalent quadrivalent influenza, influenza, 2018-01-27 Completed [facility] injectable, injectable, 10:13:00 quadrivalent quadrivalent Vital Signs Vital Name Observation Time Observation Value Comments Source BP Diastolic 2020-09-18 00:00:00 68 mm[Hg] [facility] Height 2020-09-18 00:00:00 61.75 [in_i] [facility] BMI (Body Mass Index) 2020-09-18 00:00:00 27.1 kg/m2 [facility] Medical BP Systolic 2020-09-18 00:00:00 118 mm[Hg] [facility] Body Weight 2020-09-18 00:00:00 2355.2 [oz_av] [facility] BP Diastolic 2020-09-13 00:00:00 64 mm[Hg] [facility] Height 2020-09-13 00:00:00 61.75 [in_i] [facility] BP Systolic 2020-09-13 00:00:00 124 mm[Hg] [facility] Heart Rate 2018-02-24 22:32:00 [facility] Respitory Rate 2018-02-24 22:32:00 [facility] Systolic (mm Hg) 2018-02-24 22:32:00 Kaleb [facility] Diastolic (mm Hg) 2018-02-24 22:32:00 [facility] Temperature Oral (F) 2018-02-24 22:32:00 97.0 F [facility] Heart Rate 2018-02-24 20:33:00 [facility] Respitory Rate 2018-02-24 20:33:00 [facility] Systolic (mm Hg) 2018-02-24 20:33:00 Kaleb rial [facility] Diastolic (mm Hg) 2018-02-24 20:33:00 [facility] Temperature Oral (F) 2018-02-24 20:33:00 97.8 F [facility] Temperature Oral (F) 2018-02-24 17:00:00 97.8 F [facility] Heart Rate 2018-02-24 17:00:00 [facility] Respitory Rate 2018-02-24 17:00:00 [facility] Systolic (mm Hg) 2018-02-24 17:00:00 Kaleb [facility] Diastolic (mm Hg) 2018-02-24 17:00:00 [facility] BMI Calculated 2018-02-23 12:55:00 [facility] Weight 2018-02-23 12:55:00 [facility] Height 2018-02-22 12:55:00 157[facility]48 [facility] Procedure Date / Time Performed Performing Clinician [facility] e Laparoscopic sleeve 2018-02-23 05:00:00 [facility] gastrectomy Hernia Repair 2018-02-23 00:00:00 [facility] Bariatric Surgery: 2018-02-23 00:00:00 [facility] Gastric Sleeve Low Back Disk Surgery 2014-12-31 00:00:00 [facility] Medical Lumbar Spine Surgery 2014-05-25 00:00:00 [facility] Medical Colonoscopy 2014-05-25 00:00:00 [facility] Vaginal Hysterectomy 2012-10-25 00:00:00 [facility] Medical Hysterectomy (Ovaries 2002-05-25 00:00:00 [facility] Remain) Carpal Tunnel Surgery 1996-05-25 00:00:[facility] section<sup>1</sup> Dilation and curettage [facility] H/O: hysterectomy [facility] nn History of lumbar [facility] laminectomy Plan of Care Planned Activity Planned Date Details Comments Source Future Scheduled 2022-05-17 COVID-19 VACCINE (#1) [facility] Test 13:50:42 [code = COVID-19 VACCINE (#1)] Future Scheduled 2022-05-17 Screening for [facility] Test 13:50:42 malignant neoplasm of cervix (procedure) [code = 589812103] Future Scheduled 2022-05-17 BREAST CANCER [facility] Test 13:50:42 SCREENING [code = BREAST CANCER SCREENING] Future Scheduled 2022-05-[address] [facility] Test 13:50:42 [code = COLONOSCOPY SCREENING] Future Scheduled 2022-05-17 SHINGLES VACCINES (1 Met [facility] Test 13:50:42 of 2) [code = SHINGLES VACCINES (1 of 2)] Future Scheduled 2022-05-17 INFLUENZA VACCINE Method [facility] Test 13:50:42 [code = INFLUENZA VACCINE] Diagnostic Test 2020-09-18 urinalysis, dipstick [facility] Medical Pending 00:00:00 [code = urinalysis, dipstick] Encounters Start End Encounter Admission Attending Care Care Encounter Source Date/Time Date/Time Type Type Clinicians Facility Department ID 2022-03-10 Outpatient [facility] [id number] 07:20:00 [id number] [facility] 2022-02-20 Outpatient [facility] [id number] [facility] 16:01:00 [id number] [facility] 2021-06-19 Outpatient [facility] [id number] 14:33:12 [id number] [facility] 2021-03-18 Outpatient LAINA MARINA [id number] [facility] 16:49:19 [id number] [facility] 2021-08-21 2021-08-21 Outpatient GC_PANTHER_ PRIV PRIV [id number] [facility] 09:38:00 09:38:00 Patel_G [id number] Medica l 2021-06-03 2021-06-03 Office [facility] [id number] 00:00:00 00:00:00 Visit, Batsheva Cool es - Pt., Level [facility] 1 [facility] Clinics 2021-02-22 2021-02-22 Outpatient PINEDA SHARIF OSBALDO OSBALDO [id number] [facility] 07:27:00 07:27:00 KHAI [id number] [facility] 2020-09-26 2020-09-26 Outpatient GC_PANTHER_ PRIV PRIV [id number] [facility] 02:12:00 02:12:00 Still_D [id number] Medica l 2020-09-24 2020-09-24 Outpatient GC_PANTHER_ PRIV PRIV 148 [id number] [facility] 03:43:00 03:43:00 Still_D [id number] Medica l 2020-09-21 2020-09-21 Outpatient GC_PANTHER_ PRIV PRIV 148 [id number] [facility] 01:12:00 01:12:00 Still_D [id number] Medica l 2020-09-18 2020-09-18 Outpatient GC_TBIC_WP_ PRIV PRIV [id number] [facility] 04:50:00 04:50:00 Mammo [id number] Medica l 2020-09-18 2020-09-18 Outpatient Sharif, PRIV PRIV [id number] 00:00:00 00:00:00 Khai [id number] 2020-09-18 2020-09-18 Khai [facility] 27 [facility] 00:00:00 00:00:00 BRANDIE Sharif: [facility] dicct [address] GC_PANTHER_ [facility] [place] [address], [place]* [place] [address] , Ph. 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 2020-09-13 2020-09-13 Outpatient Amanda Day PRIV PRIV [id number] 00:00:00 00:00:00 [id number] 2020-09-06 2020-09-06 Outpatient GC_PANTHER_ PRIV PRIV [id number] [facility] 01:04:00 01:04:00 Still_D [id number] Medica l 2020-09-04 2020-09-04 Outpatient GC_PANTHER_ PRIV PRIV 148 [id number] [facility] 12:54:00 12:54:00 Still_D [id number] Medica l 2019-03-07 2019-04-06 OP Therapy [facility] [id number] Memoria 12:00:00 05:59:00 Patients r [facility] 00 l Lauryn [facility] 2019-03-07 2019-04-05 Outpatient Plascencia, Jamin [id number] . [id number] 07:00:00 23:59:00 Ed [id number] 5.15 2019-02-03 2019-03-05 OP Therapy [facility] [id number] Mem[facility] 12:00:00 04:59:00 Patients r Justus 00 l Lauryn [facility] 2019-02-03 2019-03-04 Outpatient Scott Plascenciah [id number] . [id number] 07:00:00 23:59:00 Ed [id number] 5.15 2018-03-25 2018-03-26 [facility] [id number] [facility] 21:02:00 04:59:00 r Outpatient 00 l [facility] 2018-03-25 2018-03-25 Outpatient [place] [id number] 16:02:00 23:59:00 Fernando E Fredi 2018-02-23 2018-02-24 Inpatient [facility] [id number] [facility] 12:32:00 22:45:00 [place] [address] l [facility] 2018-02-23 2018-02-24 Outpatient MALIA Etienne [facility] [id number] 07:32:00 17:45:00 [place] [id number] Results Test Description Test Time Test Comments Results Result Comments Source SARS-CoV-2 (COVID-19) RNA [Presence] in Respiratory sp ecimen by 2020-09-15 00:00:00 URIEL with probe detection Test Item Value Reference Range Interpretation Comme nts SARS-CoV-2 (COVID-19) RNA [Presence] in Respiratory not detected no t detected specimen by URIEL with probe detection (test code = 20332-6) [facility] influenza virus A + B and SARS CoV + SARS CoV 2 Ag panel, [place], upper respiratory [id number] 16:53:00 Test Item Value Reference Range Interpretation Comments Flu A (test code = Flu A) negative Flu B (test code = Flu B) negative SARS-CoV-2 (test code = SARS-CoV-2) negative Control (test code = Control) Valid [facility] influenza virus A + B and SARS CoV + SARS CoV 2 Ag panel, [place], upper respiratory [id number] 16:53:00 Test Item Value Reference Range Interpretation Comments Flu A (test code = Flu A) negative Flu B (test code = Flu B) negative SARS-CoV-2 (test code = SARS-CoV-2) negative Control (test code = Control) Valid [facility]704[facility]63-27 09:18:00 Test Item Value Reference Range Interpretation Comments Segs (test code = Segs) 89.7 45.0-75.0 [facility]ZlkbvsxAITGHCXUNG6670-64-82 09:18:00 Test Item Value Reference Range Interpretation Comments Lymphocytes (test code = Lymphocytes) 6.4 20.0-40.0 [facility] CenterCldpccjNQLHVYZPLD8397-83-17 09:18:00 Test Item Value Reference Range Interpretation Comments Monocytes (test code = Monocytes) 3.6 2.0-12.0 [facility] CenterMqodxdzYYIYADXVQL5522-23-62 09:18:00 Test Item Value Reference Range Interpretation Comments RDW (test code = RDW) 14.4 11.5-14.5 [facility] CenterQgbduwoZALLXFWPAZ7059-20-27 09:18:00 Test Item Value Reference Range Interpretation Comments WBC (test code = WBC) 9.8 3.7-10.4 [facility] CenterIupmqlpOYWLOTKDIA4743-97-39 09:18:00 Test Item Value Reference Range Interpretation Comments RBC (test code = RBC) 4.19 4.20-5.40 [facility] CenterEhaxjafCVNHNDXQXS9809-93-29 09:18:00 Test Item Value Reference Range Interpretation Comments Hgb (test code = Hgb) 12.7 12.0-16.0 [facility] CenterGndszfnNLYEDVCSXZ0662-09-13 09:18:00 Test Item Value Reference Range Interpretation Comments Hct (test code = Hct) 36.9 36.0-48.0 [facility] CenterOywvxygXWCZZFFBQH8987-48-08 09:18:00 Test Item Value Reference Range Interpretation Comments MCV (test code = MCV) 88.3 80.0-98.0 [facility] CenterZbwomojVNQMCNLVUG4206-11-73 09:18:00 Test Item Value Reference Range Interpretation Comments MCH (test code = MCH) 30.4 pg 27.0-31.0 [facility] CenterQadtcjsPOZHIGORMS5606-71-89 09:18:00 Test Item Value Reference Range Interpretation Comments MCHC (test code = MCHC) 34.5 32.0-36.0 [facility] CenterMuirntoIVQEKYYTWN1804-01-62 09:18:00 Test Item Value Reference Range Interpretation Comments Platelet (test code = Platelet) 256 133-450 [facility] CenterHlharlhQBPZZDRCEX7040-57-76 09:18:00 Test Item Value Reference Range Interpretation Comments MPV (test code = MPV) 8.1 7.4-10.4 [facility] CenterQqahvtmQHPAZJDCKJ9508-76-66 09:18:00 Test Item Value Reference Range Interpretation Comments Monocytes # (test code 0.3 See_Comment [Aut omated message] The = Monocytes #) system which generated this result tra nsmitted reference range : <=0.8. The reference r danyel was not used to int erpret this result as normal/abnormal . [facility] CenterMwpokahFYZMZUYGLL5836-15-83 09:18:00 Test Item Value Reference Range Interpretation Comments Basophils (test code = 0.3 See_Comment [Aut omated message] The Basophils) system which ge nerated this result tra nsmitted reference range : <=1.0. The reference r danyel was not used to int erpret this result as normal/abnormal . [facility] CenterXqvjlunPGMLIRGLJR3483-36-40 09:18:00 Test Item Value Reference Range Interpretation Comments Neutrophils # (test code = Neutrophils 8.8 1.5-8.1 #) [facility] CenterGkldhxdPOVMKTJAVO4071-39-27 09:18:00 Test Item Value Reference Range Interpretation Comments Lymphocytes # (test code = Lymphocytes 0.6 1.0-5.5 #) [facility]2018-09-27 22:21:00 Test Item Value Reference Range Interpretation Comments eGFR (test code = eGFR) 100 [facility]2018-09-27 22:21:00 Test Item Value Reference Range Interpretation Comments BUN (test code = BUN) 21 7-22 [facility]2018-09-27 22:21:00 Test Item Value Reference Range Interpretation Comments Glucose Lvl (test code = Glucose Lvl) 83 70-99 [facility]2018-09-27 22:21:00 Test Item Value Reference Range Interpretation Comments Creatinine Lvl (test code = Creatinine 0.66 0.50-1.40 Lvl) [facility]2018-09-27 22:21:00 Test Item Value Reference Range Interpretation Comments Sodium Lvl (test code = Sodium Lvl) 138 135-145 [facility]2018-09-27 22:21:00 Test Item Value Reference Range Interpretation Comments Potassium Lvl (test code = Potassium 3.1 3.5-5.1 Lvl) [facility]2018-09-27 22:21:00 Test Item Value Reference Range Interpretation Comments Chloride Lvl (test code = Chloride Lvl) 99 95-109 [facility]2018-09-27 22:21:00 Test Item Value Reference Range Interpretation Comments Calcium Lvl (test code = Calcium Lvl) 9.6 8.5-10.5 [facility]2018-09-27 22:21:00 Test Item Value Reference Range Interpretation Comments CO2 (test code = CO2) 30 24-32 [facility]2018-09-27 22:21:00 Test Item Value Reference Range Interpretation Comments AGAP (test code = AGAP) 12.1 10.0-20.0 [facility] CenterDaxjwsrFJGHABPBJE1510-68-77 22:21:00 Test Item Value Reference Range Interpretation Comments RBC (test code = RBC) 4.41 4.20-5.40 [facility] CenterVobsxqoHEWBWBWOHL5802-43-50 22:21:00 Test Item Value Reference Range Interpretation Comments WBC (test code = WBC) 7.1 3.7-10.4 [facility] CenterPmxqdnkRUHRAOAFBO9924-96-69 22:21:00 Test Item Value Reference Range Interpretation Comments Hct (test code = Hct) 38.0 36.0-48.0 [facility] CenterKjumiljGPJOQVMTYN7628-61-06 22:21:00 Test Item Value Reference Range Interpretation Comments MCHC (test code = MCHC) 34.5 32.0-36.0 [facility] CenterEnlbxdkOPUQFNSDOE2799-73-20 22:21:00 Test Item Value Reference Range Interpretation Comments MCH (test code = MCH) 29.8 pg 27.0-31.0 [facility] CenterRkqlkewMHEMZCKMKE4441-60-76 22:21:00 Test Item Value Reference Range Interpretation Comments Hgb (test code = Hgb) 13.1 12.0-16.0 [facility] CenterYmzspiuDEPUEPFFDE6836-53-54 22:21:00 Test Item Value Reference Range Interpretation Comments MPV (test code = MPV) 8.2 7.4-10.4 [facility] CenterQedvvtxMBVFSAAKNH8762-52-04 22:21:00 Test Item Value Reference Range Interpretation Comments Platelet (test code = Platelet) 284 133-450 [place] 839488-09-27 22:21:00 Test Item Value Reference Range Interpretation Comments RDW (test code = RDW) 14.2 11.5-14.5 [facility] CenterVjzivxoCMKFUGKDKT6840-63-63 22:21:00 Test Item Value Reference Range Interpretation Comments MCV (test code = MCV) 86.3 80.0-98.0 [facility] CenterZkzciheBSFFNBMYNJ2933-94-41 22:21:00 Test Item Value Reference Range Interpretation Comments Monocytes # (test code 0.7 See_Comment [Aut omated message] The = Monocytes #) system which generated this result tra nsmitted reference range : <=0.8. The reference r danyel was not used to int erpret this result as normal/abnormal . [facility] CenterBwzmeddCYNWRDFDZR4652-63-56 22:21:00 Test Item Value Reference Range Interpretation Comments Neutrophils # (test code = Neutrophils 4.0 1.5-8.1 #) [facility] CenterCplanagJWQWQSKMNZ0334-33-33 22:21:00 Test Item Value Reference Range Interpretation Comments Lymphocytes # (test code = Lymphocytes 2.4 1.0-5.5 #) [facility] CenterRlmxfqbDZTWBUAKUH9886-43-05 22:21:00 Test Item Value Reference Range Interpretation Comments Eosinophils (test code = 1.0 See_Comment [A utomated message] The Eosinophils) system which ge nerated this result tra nsmitted reference range : <=4.0. The reference r danyel was not used to int erpret this result as normal/abnormal . [facility] CenterWnuxsfpOVCWDYPWLJ8443-95-96 22:21:00 Test Item Value Reference Range Interpretation Comments Basophils (test code = 0.5 See_Comment [Aut omated message] The Basophils) system which ge nerated this result tra nsmitted reference range : <=1.0. The reference r danyel was not used to int erpret this result as normal/abnormal . [facility] CenterAhofwraUNWDWXEYLI5193-91-77 22:21:00 Test Item Value Reference Range Interpretation Comments Segs (test code = Segs) 55.9 45.0-75.0 [facility] CenterBlhxbscYZWKPGMGQC3174-26-26 22:21:00 Test Item Value Reference Range Interpretation Comments Monocytes (test code = Monocytes) 9.7 2.0-12.0 [facility] CenterPpvumttXIVZQOMBAC0997-39-17 22:21:00 Test Item Value Reference Range Interpretation Comments Lymphocytes (test code = Lymphocytes) 32.9 20.0-40.0 [facility]jd[facility]kyUTKOHGWMLP3227-62-00 22:21:00 Test Item Value Reference Range Interpretation Comments Eosinophils # (test code 0.1 See_Comment [A utomated message] The = Eosinophils #) system [employer] generated this result tra nsmitted reference range : <=0.5. The reference r danyel was not used to int erpret this result as normal/abnormal . [facility]
[2022-07-06] MEDS ORDERED: KETOROLAC 30 MG/ML INJ ONE (21:33)
[2022-07-06] MEDS ORDERED: FAMOTIDINE 20 MG/2 ML VIAL IV ONE (21:33)
[2022-07-06] MEDS ORDERED: NA CHLORIDE 0.9% 1,000 ML ONE (21:33)
[2022-07-06 21:46] LABS: Absolute Lymphocytes (CBC) 1.4 K/uL (0.7-4.9); Hematocrit 37.5 % (36.0-45.0); Lymphocytes % 18.7 % (15.3-44.8); MCV 87.9 fL (80-100); MPV 7.9 fL (7.6-11.3); RBC Red Blood Cell Count 4.27 M/uL (3.86-4.86)
[2022-07-06 21:57] LABS: Potassium 3.4 mmol/L (3.5-5.1)
[2022-07-06 21:59] LABS: Bilirubin Total 0.4 mg/dL (0.2-1.0); Protein, Total 7.3 g/dL (6.4-8.2)
--- NOTE | 2022-07-06 22:23 | RAD REPORT ---
EXAM DESCRIPTION: CTAbdomen Pelvis W Contrast - 07/06/2022 10:12 pm CLINICAL HISTORY: Abdominal pain. ABD PAIN COMPARISON: <Comparisons> TECHNIQUE: Biphasic CT imaging of the abdomen and pelvis was performed with 100 ml non-ionic IV cont rast. All CT scans are performed using dose optimization technique as appropriate and may include automated exposure control or mA/KV adjustment according to patient size. FINDINGS: The lung bases are clear.Postsurgical changes involving the stomach. The liver, spleen, pancreas, adrenal glands and kidneys are within normal limits. Small benign liver cysts. No bowel obstruction, free air, free fluid or abscess. Small fat containing ventral hernia. The appen peyman is normal. Sigmoid diverticulosis coli without diverticulitis. No evidence of significant lymphad enopathy. Mild lumbar degenerative changes. IMPRESSION: No acute intra-abdominal or pelvic finding. Sigmoid diverticulosis coli without diverticulitis.
[2022-07-06 22:50] LABS: Urine Blood Negative (Negative); Urine Glucose Negative (Negative); Urine Protein Negative (Negative); Urine pH 7.5 (5.0-7.0)
[2022-07-06] MEDS ORDERED: SIMETHICONE 80 MG TAB ONE (23:01)
[2022-07-06 23:26] LABS: Urine Bacteria None Seen /HPF (<20); Urine RBC None Seen /HPF (None Seen)
[2022-07-06] MEDS ORDERED: DICYCLOMINE HCL 10 MG CAP ONE (23:43)
[2022-07-06] MEDS ORDERED: LORAZEPAM 1 MG TABLET ONE (23:43)
--- NOTE | 2022-07-07 00:19 | EDPHYS ---
Physician Documentation [facility] Name: Codie Hudson Age: 62 yrs Sex: Female : 1960 Arrival Date: 07/06/2022 Time: 21:03 Bed 20 Private MD: ED Physician Quincy Webb HPI: 07/06 21:18 This 62 yrs old Female presents to ER via Unassigned with complaints of Abdominal Pain, snw Vomiting. 21:18 The patient presents with abdominal pain in the periumbilical area. Onset: The snw symptoms/episode began/occurred suddenly, at 18:10, and became persistent. The symptoms do not radiate. The symptoms are described as shooting, steady. Severity of pain: At its worst the pain was moderate in the emergency department the pain is unchanged. The patient has not experienced similar symptoms in the past. The patient has not recently seen a physician. hx of htn, has had hyst, gastric sleeve, laminectomy L5, bilateral carpal tunnel. Historical: - Allergies: 21:19 Codeine; ll3 - Home Meds: 21:19 montelukast oral [Active]; ll3 - PMHx: 21:19 Asthma; Hypertensive disorder; ll3 - PSHx: 21:19 Total abdominal hysterectomy; Gastric sleeve; ll3 - Immunization history:: Client reports receiving the 2nd dose of the Covid vaccine. - Social history:: Smoking status: Patient/guardian denies using tobacco. ROS: 21:17 Constitutional: Negative for fever, chills, and weight loss, Eyes: Negative for injury, snw pain, redness, and discharge, ENT: Negative for injury, pain, and discharge, Neck: Negative for injury, pain, and swelling, Cardiovascular: Negative for chest pain, palpitations, and edema, Respiratory: Negative for shortness of breath, cough, wheezing, and pleuritic chest pain, Back: Negative for injury and pain, : Negative for injury, bleeding, discharge, and swelling, MS/Extremity: Negative for injury and deformity, Skin: Negative for injury, rash, and discoloration, Neuro: Negative for headache, weakness, numbness, tingling, and seizure, Psych: Negative for depression, anxiety, suicide ideation, homicidal ideation, and hallucinations. 21:17 Abdomen/GI: Positive for abdominal pain, nausea, vomiting, did enema prior to arrival - small amount of stool resulted. Exam: 21:17 Constitutional: This is a well developed, well nourished patient who is awake, alert, snw and in no acute distress. Head/Face: Normocephalic, atraumatic. Eyes: Pupils equal round and reactive to light, extra-ocular motions intact. Lids and lashes normal. Conjunctiva and sclera are non-icteric and not injected. Cornea within normal limits. Periorbital areas with no swelling, redness, or edema. ENT: Nares patent. No nasal discharge, no septal abnormalities noted. Tympanic membranes are normal and external auditory canals are clear. Oropharynx with no redness, swelling, or masses, exudates, or evidence of obstruction, uvula midline. Mucous membranes moist. Neck: Trachea midline, no thyromegaly or masses palpated, and no cervical lymphadenopathy. Supple, full range of motion without nuchal rigidity, or vertebral point tenderness. No Meningismus. Chest/axilla: Normal chest wall appearance and motion. Nontender with no deformity. No lesions are appreciated. Cardiovascular: Regular rate and rhythm with a normal S1 and S2. No gallops, murmurs, or rubs. Normal PMI, no JVD. No pulse deficits. Respiratory: Lungs have equal breath sounds bilaterally, clear to auscultation and percussion. No rales, rhonchi or wheezes noted. No increased work of breathing, no retractions or nasal flaring. Back: No spinal tenderness. No costovertebral tenderness. Full range of motion. Skin: Warm, dry with normal turgor. Normal color with no rashes, no lesions, and no evidence of cellulitis. MS/ Extremity: Pulses equal, no cyanosis. Neurovascular intact. Full, normal range of motion. Neuro: Awake and alert, GCS 15, oriented to person, place, time, and situation. Cranial nerves II-XII grossly intact. Motor strength 5/5 in all extremities. Sensory grossly intact. Cerebellar exam normal. Normal gait. Psych: Awake, alert, with orientation to person, place and time. Behavior, mood, and affect are within normal limits. 21:17 Abdomen/GI: Inspection: abdomen appears normal, Bowel sounds: normal, Palpation: moderate abdominal tenderness, in the umbilical area, right upper quadrant and left upper quadrant, gastric sleeve in 2018. Vital Signs: 21:09 BP 191 / 91; Pulse 64; Resp 19 S; Pulse Ox 99% on R/A; ha1 21:17 BP 186 / 115; Pulse 63; Resp 18; Temp 97.7(O); Pulse Ox 99% on R/A; Weight 61.69 kg ll3 (R); Height 5 ft. 3 in. (160.02 cm) (R); Pain 8/10; 22:10 BP 173 / 87; Pulse 69; Resp 18 S; Pulse Ox 100% on R/A; ha1 22:55 BP 170 / 87; Pulse 66; Resp 16 S; Pulse Ox 100% on R/A; ha1 23:30 BP 173 / 90; Pulse 69; Resp 18 S; Pulse Ox 99% on R/A; ha1 07/07 00:25 BP 173 / 89; Pulse 65; Resp 18 S; Pulse Ox 99% on R/A; ha1 07/06 21:17 Body Mass Index 24.09 (61.69 kg, 160.02 cm) ll3 MDM: 07/06 21:04 Patient medically screened. snw 23:37 Differential diagnosis: Cholelithiasis, diverticulitis, gastritis, non-specific abd snw pain, pancreatitis, gastric sleeve malfunction, ileus, obstruction. Data reviewed: vital signs, nurses notes, lab test result(s), radiologic studies, CT scan. Counseling: I had a detailed discussion with the patient and/or guardian regarding: the historical points, exam findings, and any diagnostic results supporting the discharge/admit diagnosis, the presence of at least one elevated blood pressure reading (>120/80) during this emergency department visit, lab results, radiology results, pt with spasmodic abd pain, will add dicyclomine to simethicone. Special discussion: Based on the patient's Hx, exam, and Dx evaluation, there is no indication for emergent surgery or inpatient Tx. It is understood by the patient/guardian that if the Sx's persist or worsen they need to return immediately for re-evaluation. 07/07 00:17 Response to treatment: the patient's symptoms have markedly improved after treatment, snw the patient's condition has returned to base line. 07/06 21:17 Order name: CBC with Diff snw 07/06 21:17 Order name: CMP snw 07/06 21:17 Order name: Lipase snw 07/06 21:51 Order name: CBC with Automated Diff; Complete Time: 21:58 EDMS 07/06 21:58 Order name: Comprehensive Metabolic Panel; Complete Time: 22:22 EDMS 07/06 21:17 Order name: CT Abd/Pelvis - IV Contrast Only snw 07/06 21:58 Order name: Lipase; Complete Time: 22:22 EDMS 07/06 22:24 Order name: CT; Complete Time: 22:41 EDMS 07/06 22:51 Order name: Urine Dipstick-Ancillary; Complete Time: 22:53 EDMS 07/06 23:26 Order name: Urine Microscopic Only; Complete Time: 23:27 EDMS 07/06 21:17 Order name: IV Saline Lock; Complete Time: 21:24 snw 07/06 21:17 Order name: Labs collected and sent; Complete Time: 21:41 snw 07/06 22:43 Order name: Vital Signs; Complete Time: 22:52 snw Administered Medications: 07/06 21:33 Drug: NS 0.9% 1000 ml Route: IV; Rate: 1 bolus; Site: right antecubital; ha1 07/07 00:43 Follow up: Response: No adverse reaction; IV Status: Completed infusion; IV Intake: ha1 1000ml 07/06 21:34 Drug: TORadol - (ketorolac) 15 mg Route: IVP; Site: right antecubital; ha1 22:00 Follow up: Response: No adverse reaction; Pain is decreased ha1 21:37 Drug: Pepcid (famotidine) 20 mg Route: IVP; Site: right antecubital; ha1 22:00 Follow up: Response: No adverse reaction ha1 22:58 Drug: Simethicone 240 mg Route: PO; ha1 23:15 Follow up: Response: No adverse reaction ha1 23:44 Drug: Dicyclomine 20 mg Route: PO; ha1 07/07 00:00 Follow up: Response: No adverse reaction ha1 07/06 23:44 Drug: Ativan (LORazepam) 1 mg Route: PO; ha1 07/07 00:00 Follow up: Response: No adverse reaction; Pain is decreased; RASS: Alert and Calm (0) ha1 Disposition: 07:43 Co-signature as Attending Physician, Quincy Webb DO I was immediately available on-site ms3 in the Emergency Department for consultation in the care of the patient. Disposition Summary: 07/07/22 00:18 Discharge Ordered Location: Home snw Condition: Stable snw Diagnosis - Abdominal pain, unspecified snw Followup: snw - With: Emergency Department - When: As needed - Reason: Worsening of condition Followup: snw - With: Private Physician - When: 2 - 3 days - Reason: Recheck today's complaints, Continuance of care, Re-evaluation by your physician Discharge Instructions: - Discharge Summary Sheet snw - Abdominal Pain, Adult snw - High-Fiber Diet snw - Gas and Gas Pains, Pediatric snw Forms: - Medication Reconciliation Form snw - Thank You Letter snw - Antibiotic Education snw - Prescription Opioid Use snw Prescriptions: - promethazine 25 mg Oral Tablet - take 1 tablet by ORAL route every 6 hours As needed; 20 tablet; Refills: 0, snw Product Selection Permitted - dicyclomine 20 mg Oral Tablet - take 1 tablet by ORAL route 3 times per day; 21 tablet; Refills: 0, Product snw Selection Permitted Signatures: Dispatcher [employer] EDMS Honey Dobson, CLINIC LPN-C CLINIC LPN-CsnQuincy Gavin DO DO ms3 Rachel Valdez, RN RN 3 Shana Taylor, RN RN ha1 Corrections: (The following items were deleted from the chart) 07/06 21:40 21:17 Urine Microscopic+U.LAB.BRZ ordered. EDMS EDMS
--- NOTE | 2022-07-07 00:19 | ER ---
Nurse's Notes [facility] Name: Codie Hudson Age: 62 yrs Sex: Female : 1960 Arrival Date: 07/06/2022 Time: 21:03 Bed 20 Private MD: Diagnosis: Abdominal pain, unspecified Presentation: 07/06 21:17 Chief complaint: Patient states: C/o abdominal pain, N/V, and dry mouth since 1830. ll3 Coronavirus screen: Vaccine status: Patient reports receiving the 2nd dose of the covid vaccine. muscle pain, nausea, vomiting. Ebola Screen: No symptoms or risks identified at this time. Initial Sepsis Screen: Does the patient meet any 2 criteria? No. Patient's initial sepsis screen is negative. Does the patient have a suspected source of infection? No. Patient's initial sepsis screen is negative. Risk Assessment: Do you want to hurt yourself or someone else? Patient reports no desire to harm self or others. Onset of symptoms was July 06, 2022 at 18:30. 21:17 Method Of Arrival: Ambulatory ll3 21:17 Acuity: TERESA 3 ll3 Historical: - Allergies: 21:19 Codeine; ll3 - Home Meds: 21:19 montelukast oral [Active]; ll3 - PMHx: 21:19 Asthma; Hypertensive disorder; ll3 - PSHx: 21:19 Total abdominal hysterectomy; Gastric sleeve; ll3 - Immunization history:: Client reports receiving the 2nd dose of the Covid vaccine. - Social history:: Smoking status: Patient/guardian denies using tobacco. Screenin:09 [facility] ED Fall Risk Assessment (Adult) History of falling in the last 3 months, ha1 including since admission No falls in past 3 months (0 pts) Confusion or Disorientation No (0 pts) Intoxicated or Sedated No (0 pts) Impaired Gait No (0 pts) Mobility Assist Device Used No (0 pt) Altered Elimination No (0 pt) Score/Fall Risk Level 0 - 2 = Low Risk Oriented to surroundings, Maintained a safe environment, Educated pt \T\ family on fall prevention, incl call for assistance when getting out of bed. 22:51 Abuse screen: Denies threats or abuse. Denies injuries from another. Nutritional ha1 screening: No deficits noted. Tuberculosis screening: No symptoms or risk factors identified. Assessment: 21:09 General: Appears uncomfortable, Behavior is cooperative, anxious. Pain: Complains of ha1 pain in abdomen Pain does not radiate. Pain currently is 8 out of 10 on a pain scale. Quality of pain is described as crampy, throbbing, Pain began suddenly, Alleviated by medications. Neuro: Level of Consciousness is awake, alert, obeys commands, Oriented to person, place, time, situation. Cardiovascular: Heart tones S1 S2 present Capillary refill < 3 seconds Patient's skin is warm and dry. Respiratory: Airway is patent Respiratory effort is even, unlabored, Respiratory pattern is regular, symmetrical. GI: Abdomen is flat, non-distended, Bowel sounds present X 4 quads. Abd is soft and non tender X 4 quads. Reports constipation, cramping, nausea, vomiting. : No signs and/or symptoms were reported regarding the genitourinary system. EENT: No deficits noted. No signs and/or symptoms were reported regarding the EENT system. Derm: Skin is pink, warm \T\ dry. Musculoskeletal: Circulation, motion, and sensation intact. Range of motion: intact in all extremities. 22:10 Reassessment: Patient and/or family updated on plan of care and expected duration. Pain ha1 level reassessed. Patient is alert, oriented x 3, equal unlabored respirations, skin warm/dry/pink. Patient states feeling better. Patient states symptoms have improved. 22:55 Reassessment: Patient and/or family updated on plan of care and expected duration. Pain ha1 level reassessed. Patient is alert, oriented x 3, equal unlabored respirations, skin warm/dry/pink. pain 12/01 notified care provider. 23:29 Reassessment: Patient and/or family updated on plan of care and expected duration. Pain ha1 level reassessed. Patient is alert, oriented x 3, equal unlabored respirations, skin warm/dry/pink. care provider in the room. pain 01/01. 07/07 00:23 Reassessment: Patient and/or family updated on plan of care and expected duration. Pain ha1 level reassessed. Patient is alert, oriented x 3, equal unlabored respirations, skin warm/dry/pink. being discharged. Vital Signs: 07/06 21:09 BP 191 / 91; Pulse 64; Resp 19 S; Pulse Ox 99% on R/A; ha1 21:17 BP 186 / 115; Pulse 63; Resp 18; Temp 97.7(O); Pulse Ox 99% on R/A; Weight 61.69 kg ll3 (R); Height 5 ft. 3 in. (160.02 cm) (R); Pain 8/10; 22:10 BP 173 / 87; Pulse 69; Resp 18 S; Pulse Ox 100% on R/A; ha1 22:55 BP 170 / 87; Pulse 66; Resp 16 S; Pulse Ox 100% on R/A; ha1 23:30 BP 173 / 90; Pulse 69; Resp 18 S; Pulse Ox 99% on R/A; ha1 07/07 00:25 BP 173 / 89; Pulse 65; Resp 18 S; Pulse Ox 99% on R/A; ha1 07/06 21:17 Body Mass Index 24.09 (61.69 kg, 160.02 cm) ll3 ED Course: 07/06 21:03 Patient arrived in ED. mr 21:03 Honey Dobson, INDIO is PHCP. snw 21:04 Quincy Webb DO is Attending Physician. snw 21:09 Patient has correct armband on for positive identification. Bed in low position. Call [facility] light in reach. Side rails up X 1. Adult w/ patient. 21:11 Shana Taylor, RN is Primary Nurse. ha1 21:19 Triage completed. ll3 21:19 Arm band placed on Patient placed in an exam room, on a stretcher, on pulse oximetry. ll3 21:24 Inserted saline lock: 20 gauge in right antecubital area, using aseptic technique. ha1 Blood collected. 21:39 CBC with Diff Sent. ha1 21:39 CMP Sent. ha1 21:40 Lipase Sent. ha1 07/07 00:43 No provider procedures requiring assistance completed. IV discontinued, intact, ha1 bleeding controlled, No redness/swelling at site. Pressure dressing applied. Administered Medications: 07/06 21:33 Drug: NS 0.9% 1000 ml Route: IV; Rate: 1 bolus; Site: right antecubital; ha1 07/07 00:43 Follow up: Response: No adverse reaction; IV Status: Completed infusion; IV Intake: ha1 1000ml 07/06 21:34 Drug: TORadol - (ketorolac) 15 mg Route: IVP; Site: right antecubital; ha1 22:00 Follow up: Response: No adverse reaction; Pain is decreased ha1 21:37 Drug: Pepcid (famotidine) 20 mg Route: IVP; Site: right antecubital; ha1 22:00 Follow up: Response: No adverse reaction ha1 22:58 Drug: Simethicone 240 mg Route: PO; ha1 23:15 Follow up: Response: No adverse reaction ha1 23:44 Drug: Dicyclomine 20 mg Route: PO; ha1 07/07 00:00 Follow up: Response: No adverse reaction ha1 07/06 23:44 Drug: Ativan (LORazepam) 1 mg Route: PO; ha1 07/07 00:00 Follow up: Response: No adverse reaction; Pain is decreased; RASS: Alert and Calm (0) ha1 Medication: 00:44 VIS not applicable for this client. ha1 Intake: 00:43 IV: 1000ml; Total: 1000ml. ha1 Outcome: 00:18 Discharge ordered by . dinorah 00:43 Discharged to home via wheelchair, with family. ha1 00:43 Condition: stable 00:43 Discharge instructions given to patient, family, Instructed on discharge instructions, follow up and referral plans. medication usage, Demonstrated understanding of instructions, follow-up care, medications, Prescriptions given X 2. 00:44 Patient left the ED. ha1 Signatures: Honey Dobson FNP-C [employer]-[place] Brielle Horn Rachel Valdez RN RN 3 Shana Taylor RN RN 1
== END 2022-07-07 00:44 | disposition home or self-care (01) ==
LOC: ER 21:02
DX: R10.9 Unspecified abdominal pain (principal); I10 Essential (primary) hypertension; Z88.5 Allergy status to narcotic agent; Z98.84 Bariatric surgery status
CPT/HCPCS: 96361; 85025; 36415; 83690; 80053; 74177; 96375; 96374; 99284; Q9967; J7030; 81003; 81015